=== PATIENT | female | born 1970 ===

== ENCOUNTER 2019-06-01 09:07 | Outpatient (CLI) | payer OTHER | END 2019-06-01 09:25 | disposition home or self-care (01) | LOC: LAB 09:07 | DX: N20.0 Calculus of kidney (principal) ==

== ENCOUNTER 2020-06-10 05:57 | Day surgery (SDC) | payer OTHER | END 2020-06-10 15:50 | disposition home or self-care (01) | LOC: CIR.AMB 05:57 | PROVIDERS: ATTEND Obstetrics & Gynecology | DX: N84.0 Polyp of corpus uteri (principal); Z20.828 Contact with and (suspected) exposure to other viral communicable diseases; D25.0 Submucous leiomyoma of uterus ==